=== PATIENT | female | born 1950 | race Caucasian/White ===

== ENCOUNTER → 2016-06-28 | Outpatient (CLI) | payer MEDICARE, OTHER ==
[~2016-06-28] MED LIST: ASPIR-LOW81 MG PO; ASPIRIN 81M81 MG/TA2 PO; CALCIUM 600600 M2 PO; CLARITIN 1010 MG/TAB PO; HCTZ 25MG25 MG PO; LIPITOR 40MG TA40 MG PO; LISINOPRIL20 MG PO; LOPRESSOR 225 MG/TAB PO; MICARDIS40 MG PO; NATURE'S BL400 IU/ML PO; NEXIUM 40MG40 MG PO; NEXIUM40 MG PO; NITRO-DUR0.4 MG/PAT TD; OMEGA 31000 MG PO; SYNTHROID0.088 MG/T PO; TENORMIN 2525 MG/TAB PO; ZYRTEC 10MG
== END ==
LOC: COL.VAS 12:22
DX: N27.1 Small kidney, bilateral (principal); N28.89 Other specified disorders of kidney and ureter; I82.812 Embolism and thrombosis of superficial veins of left lower extremity; I82.402 Acute embolism and thrombosis of unspecified deep veins of left lower extremity

== ENCOUNTER → 2017-06-25 | Outpatient (CLI) | payer MEDICARE, OTHER | LOC: COL.VAS 09:38 | DX: Z86.718 Personal history of other venous thrombosis and embolism (principal) ==

== ENCOUNTER 2017-07-23 07:28 | Day surgery (SDC) | payer MEDICARE, OTHER ==
[2017-07-23] VITALS (12 sets, daily range): BP systolic 110–131; BP diastolic 44–71; PULSE 62–78; TEMP 96.8–97.8
[~2017-07-23] VITALS: Ht 156.2 cm; Wt 73.0 kg
[~2017-07-23 07:28] MED LIST changes: +EPA FISH OIL1 SGL PO; -OMEGA 31000 MG PO
[2017-07-23 08:05] LABS: HEMATOCRIT 38.7 % (37.0-47.0); HEMOGLOBIN 13.1 g/dl (12.5-16.0); MEAN CELL VOLUME 94 fl (80.0-100.0); MEAN CORPUSCULAR HEMOGLOBIN 32 pg (27.0-31.0); MEAN CORPUSCULAR HGB CONC 34 g/dl (33.0-37.0); PLATELET COUNT 202 K/mm3 (130-400); REDCELL DISTRIBUTION WIDTH-CV 14.2 % (11.5-14.5)
[2017-07-23 08:12] LABS: INR 0.9 (0.8-3.0); PROTHROMBIN TIME 10.4 SECONDS (9.7-12.8)
[2017-07-23] MEDS ORDERED: RT ADVAIR HFA 1112 G IH (08:13)
[2017-07-23 08:14] LABS: CALCIUM 9.9 mg/dL (8.4-10.2); CREATININE, serum 1.26 mg/dL (0.52-1.25)
[2017-07-23] MEDS ORDERED: PROTONIX 40MG T40 MG PO (08:15)
[2017-07-23] MEDS ORDERED: CALCITRATE 3151 TAB PO (08:18)
[2017-07-23] MEDS ORDERED: THERATEARS 0.60.6 ML OP (08:20)
[2017-07-23] MEDS ORDERED: RESTASIS 60VL OU (08:22)
[2017-07-23] MEDS ORDERED: AKWA TEARS 15 M15 ML OP (08:23)
[2017-07-23] MEDS ORDERED: ELIQUIS 5MG PO (08:24)
[2017-07-23] MEDS ORDERED: VITAMIN D31000 I1 PO (08:25)
[2017-07-23] MEDS ORDERED: NATURAL IRON65 MG PO (08:26)
== END 2017-07-23 15:08 | disposition home or self-care (01) ==
LOC: COL.CAR 07:28
PROVIDERS: Internal Medicine Cardiovascular Disease
DX: R94.39 Abnormal result of other cardiovascular function study (principal); I10 Essential (primary) hypertension; I08.1 Rheumatic disorders of both mitral and tricuspid valves; K21.9 Gastro-esophageal reflux disease without esophagitis; E78.00 Pure hypercholesterolemia, unspecified; Z96.651 Presence of right artificial knee joint; Z79.82 Long term (current) use of aspirin; Z79.01 Long term (current) use of anticoagulants; Z86.718 Personal history of other venous thrombosis and embolism; Z82.3 Family history of stroke
CPT/HCPCS: J2250; J3010; Q9967

== ENCOUNTER → 2017-11-24 | Outpatient (CLI) | payer MEDICARE, OTHER ==
[~2017-11-24] MED LIST changes: +AKWA TEARS 15 M15 ML OP; +CALCITRATE 3151 TAB PO; +ELIQUIS 5MG PO; +NATURAL IRON65 MG PO; +PROTONIX 40MG T40 MG PO; +RESTASIS 60VL OU; +RT ADVAIR HFA 1112 G IH; +THERATEARS 0.60.6 ML OP; +VITAMIN D31000 I1 PO
== END ==
LOC: ZCOL.LAB 15:57
DX: M25.561 Pain in right knee (principal)

== ENCOUNTER → 2017-12-01 | Outpatient (REF) ==
[~2017-12-01] MED LIST changes: +BAKING SODA
== END ==
LOC: ZMSC 15:26
DX: Z01.89 Encounter for other specified special examinations (principal)

== ENCOUNTER → 2017-12-05 | Outpatient (CLI) | payer MEDICARE, OTHER | LOC: MC.RAD 13:11 | DX: Z12.31 Encounter for screening mammogram for malignant neoplasm of breast (principal) ==

== ENCOUNTER → 2018-02-26 | Outpatient (CLI) | payer MEDICARE, OTHER ==
[~2018-02-26] MED LIST changes: +SYNTHROID0.1 MG/TAB PO
== END ==
LOC: COL.LAB 14:40
DX: Z96.651 Presence of right artificial knee joint (principal)

== ENCOUNTER → 2018-02-27 | Outpatient (REF) ==
[2018-02-27 06:43] LABS: INR 1.4 (0.8-3.0); PROTHROMBIN TIME 15.9 SECONDS (9.7-12.8)
[2018-02-27 06:48] LABS: CALCIUM 9.6 mg/dL (8.4-10.2); CREATININE, serum 1.25 mg/dL (0.52-1.25); POTASSIUM 3.3 mmol/L (3.4-5.0)
== END ==
LOC: ZMSC 06:32
PROVIDERS: Orthopaedic Surgery
DX: Z01.89 Encounter for other specified special examinations (principal)

== ENCOUNTER → 2018-02-28 | Outpatient (CLI) | payer MEDICARE, OTHER | LOC: ZCOL.LAB 18:45 | DX: Z01.89 Encounter for other specified special examinations (principal) ==

== ENCOUNTER → 2018-02-28 | Outpatient (REF) | LOC: ZMSC 10:17 | DX: Z01.89 Encounter for other specified special examinations (principal) | CPT/HCPCS: P9016 ==

== ENCOUNTER → 2018-03-01 | Outpatient (REF) | LOC: ZMSC 04:10 | DX: Z01.89 Encounter for other specified special examinations (principal) ==

== ENCOUNTER 2018-04-14 08:00 | Outpatient (RCR) | payer MEDICARE, OTHER ==
[2018-03-02 13:05] VITALS: BP 123/61; PULSE 78; TEMP 97.2
[2018-03-03 08:16] VITALS: BP 128/59; PULSE 81; TEMP 98.3
[2018-03-04 07:44] VITALS: BP 118/52; PULSE 80; TEMP 98.6
[2018-03-05 08:00] VITALS: BP 112/54; PULSE 75; TEMP 97.9
[2018-03-06 08:04] VITALS: BP 119/52; PULSE 81; TEMP 97.9
[2018-03-07 08:02] VITALS: BP 123/54; PULSE 79; TEMP 98.4
[2018-03-08 08:30] VITALS: BP 115/49; PULSE 78; TEMP 98.4
[2018-03-09 08:10] VITALS: BP 123/52; PULSE 73; TEMP 97.9
[2018-03-09 08:13] LABS: HEMOGLOBIN 10.8 g/dl (12.5-16.0); MEAN CELL VOLUME 88 fl (80.0-100.0); MEAN CORPUSCULAR HEMOGLOBIN 30 pg (27.0-31.0); MEAN CORPUSCULAR HGB CONC 34 g/dl (33.0-37.0); MEAN PLATELET VOLUME 9.5 fl (7.4-10.4); PLATELET COUNT 214 K/mm3 (130-400); REDCELL DISTRIBUTION WIDTH-CV 13.3 % (11.5-14.5)
[2018-03-09 08:15] LABS: HEMATOCRIT 31.8 % (37.0-47.0)
[2018-03-09 08:27] LABS: C-REACTIVE PROTEIN 4.9 mg/dL (0.0-0.9); CALCIUM 8.8 mg/dL (8.4-10.2); CREATININE, serum 0.99 mg/dL (0.52-1.25); POTASSIUM 3.3 mmol/L (3.4-5.0)
[2018-03-09 08:52] LABS: ERYTHROCYTE SEDIMENTATION RATE 48 mm/hr (0-30)
[2018-03-10 09:21] VITALS: BP 118/59; PULSE 68; TEMP 97.8
[2018-03-11 08:04] VITALS: BP 116/56; PULSE 69; TEMP 97.7
[2018-03-12 08:21] VITALS: BP 122/55; PULSE 78; TEMP 97.4
[2018-03-13 08:00] VITALS: BP 127/54; PULSE 78; TEMP 97.6
[2018-03-14 08:12] VITALS: BP 131/58; PULSE 73; TEMP 97.4
[2018-03-15 08:19] VITALS: BP 123/62; PULSE 70; TEMP 98.5
[2018-03-16 08:15] VITALS: BP 133/50; PULSE 79; TEMP 98.1
[2018-03-16 08:15] LABS: MEAN CELL VOLUME 88 fl (80.0-100.0); MEAN CORPUSCULAR HEMOGLOBIN 30 pg (27.0-31.0); MEAN CORPUSCULAR HGB CONC 34 g/dl (33.0-37.0); MEAN PLATELET VOLUME 9.1 fl (7.4-10.4); PLATELET COUNT 197 K/mm3 (130-400); RED BLOOD COUNT 3.68 M/mm3 (4.10-5.30); REDCELL DISTRIBUTION WIDTH-CV 14.4 % (11.5-14.5)
[2018-03-16 08:28] LABS: C-REACTIVE PROTEIN 3.3 mg/dL (0.0-0.9); CALCIUM 9.4 mg/dL (8.4-10.2); CREATININE, serum 0.98 mg/dL (0.52-1.25); HEMATOCRIT 32.5 % (37.0-47.0); POTASSIUM 3.3 mmol/L (3.4-5.0)
[2018-03-16 08:49] LABS: ERYTHROCYTE SEDIMENTATION RATE 28 mm/hr (0-30)
[2018-03-17 08:00] VITALS: BP 136/66; PULSE 72; TEMP 97.8
[2018-03-18 08:03] VITALS: BP 127/81; PULSE 69; TEMP 97.9
[2018-03-19 08:04] VITALS: BP 129/56; PULSE 73; TEMP 97.2
[2018-03-20 08:00] VITALS: BP 150/59; PULSE 76; TEMP 97.6
[2018-03-21 08:00] VITALS: BP 138/63; PULSE 77; TEMP 98.6
[2018-03-22 08:00] VITALS: BP 124/61; PULSE 74; TEMP 98.1
[2018-03-23 08:06] VITALS: BP 138/69; PULSE 79; TEMP 97.7
[2018-03-23 08:15] LABS: MEAN CELL VOLUME 90 fl (80.0-100.0); MEAN CORPUSCULAR HEMOGLOBIN 30 pg (27.0-31.0); MEAN CORPUSCULAR HGB CONC 33 g/dl (33.0-37.0); MEAN PLATELET VOLUME 9.7 fl (7.4-10.4); PLATELET COUNT 218 K/mm3 (130-400); REDCELL DISTRIBUTION WIDTH-CV 14.9 % (11.5-14.5)
[2018-03-23 08:20] LABS: HEMATOCRIT 33.2 % (37.0-47.0)
[2018-03-23 08:33] LABS: C-REACTIVE PROTEIN 1.8 mg/dL (0.0-0.9); CALCIUM 9.2 mg/dL (8.4-10.2); CREATININE, serum 0.86 mg/dL (0.52-1.25); POTASSIUM 3.3 mmol/L (3.4-5.0)
[2018-03-23 08:49] LABS: ERYTHROCYTE SEDIMENTATION RATE 20 mm/hr (0-30)
[2018-03-24 08:06] VITALS: BP 141/63; PULSE 76; TEMP 97.1
[2018-03-25 07:55] VITALS: BP 127/58; PULSE 76; TEMP 98.6
[2018-03-26 09:02] VITALS: BP 139/59; PULSE 79; TEMP 97.3
[2018-03-27 08:08] VITALS: BP 133/59; PULSE 84; TEMP 97.7
[2018-03-28 08:06] VITALS: BP 145/61; PULSE 70; TEMP 96.7
[2018-03-29 08:32] VITALS: BP 141/72; PULSE 74; TEMP 97.5
[2018-03-30 08:18] LABS: HEMOGLOBIN 11.6 g/dl (12.5-16.0); MEAN CELL VOLUME 90 fl (80.0-100.0); MEAN CORPUSCULAR HEMOGLOBIN 30 pg (27.0-31.0); MEAN CORPUSCULAR HGB CONC 33 g/dl (33.0-37.0); MEAN PLATELET VOLUME 9.7 fl (7.4-10.4); PLATELET COUNT 173 K/mm3 (130-400); REDCELL DISTRIBUTION WIDTH-CV 15.1 % (11.5-14.5)
[2018-03-30 08:19] VITALS: BP 134/55; PULSE 73; TEMP 97.6
[2018-03-30 08:35] LABS: C-REACTIVE PROTEIN 1.2 mg/dL (0.0-0.9); CALCIUM 9.4 mg/dL (8.4-10.2); CREATININE, serum 0.88 mg/dL (0.52-1.25); POTASSIUM 3.6 mmol/L (3.4-5.0)
[2018-03-30 08:47] LABS: ERYTHROCYTE SEDIMENTATION RATE 16 mm/hr (0-30)
[2018-03-31 08:05] VITALS: BP 137/63; PULSE 76; TEMP 97.4
[2018-04-01 08:00] VITALS: BP 133/66; PULSE 76; TEMP 97.2
[2018-04-02 09:43] VITALS: BP 134/59; PULSE 76; TEMP 97.5
[2018-04-03 08:08] VITALS: BP 136/55; PULSE 67; TEMP 97.9
[2018-04-04 08:40] VITALS: BP 117/57; PULSE 78; TEMP 97.7
[2018-04-05 08:02] VITALS: BP 140/60; PULSE 69; TEMP 97.6
[2018-04-06 08:03] VITALS: BP 142/69; PULSE 77; TEMP 97.4
[2018-04-06 08:53] LABS: HEMOGLOBIN 10.7 g/dl (12.5-16.0); MEAN CELL VOLUME 91 fl (80.0-100.0); MEAN CORPUSCULAR HEMOGLOBIN 30 pg (27.0-31.0); MEAN CORPUSCULAR HGB CONC 33 g/dl (33.0-37.0); PLATELET COUNT 165 K/mm3 (130-400); RED BLOOD COUNT 3.57 M/mm3 (4.10-5.30); REDCELL DISTRIBUTION WIDTH-CV 15.2 % (11.5-14.5)
[2018-04-06 08:55] LABS: HEMATOCRIT 32.6 % (37.0-47.0)
[2018-04-06 09:08] LABS: C-REACTIVE PROTEIN 0.9 mg/dL (0.0-0.9); CALCIUM 9.3 mg/dL (8.4-10.2); CREATININE, serum 0.94 mg/dL (0.52-1.25); POTASSIUM 3.8 mmol/L (3.4-5.0)
[2018-04-06 09:25] LABS: ERYTHROCYTE SEDIMENTATION RATE 11 mm/hr (0-30)
[2018-04-07 08:34] VITALS: BP 114/58; PULSE 72; TEMP 97.1
[2018-04-08 08:00] VITALS: BP 120/71; PULSE 76; TEMP 97.5
[2018-04-09 08:24] VITALS: BP 125/63; PULSE 83; TEMP 97.8
[2018-04-10 08:30] VITALS: BP 114/64; PULSE 63; TEMP 97.5
[2018-04-11 07:45] VITALS: BP 148/67; PULSE 72; TEMP 97.5
[2018-04-12 08:09] VITALS: BP 131/54; PULSE 79; TEMP 97.2
[2018-04-13 08:18] VITALS: BP 125/58; PULSE 103; TEMP 98.1
[2018-04-13 08:30] LABS: HEMOGLOBIN 11.6 g/dl (12.5-16.0); MEAN CELL VOLUME 91 fl (80.0-100.0); MEAN CORPUSCULAR HEMOGLOBIN 30 pg (27.0-31.0); MEAN CORPUSCULAR HGB CONC 33 g/dl (33.0-37.0); MEAN PLATELET VOLUME 9.8 fl (7.4-10.4); PLATELET COUNT 158 K/mm3 (130-400); RED BLOOD COUNT 3.89 M/mm3 (4.10-5.30); REDCELL DISTRIBUTION WIDTH-CV 15.1 % (11.5-14.5)
[2018-04-13 08:31] LABS: HEMATOCRIT 35.2 % (37.0-47.0)
[2018-04-13 08:39] LABS: CALCIUM 9.3 mg/dL (8.4-10.2); CREATININE, serum 0.85 mg/dL (0.52-1.25); POTASSIUM 3.9 mmol/L (3.4-5.0)
[2018-04-13 08:53] LABS: ERYTHROCYTE SEDIMENTATION RATE 6 mm/hr (0-30)
[~2018-04-14] VITALS: Ht 157.5 cm; Wt 58.4 kg
[~2018-04-14 08:00] MED LIST changes: +ROXICODONE 55 MG/TAB PO
[2018-04-14 08:06] VITALS: BP 130/51; PULSE 68; TEMP 97.9
== END 2018-04-14 09:19 | disposition home or self-care (01) ==
LOC: EUO 08:00
PROVIDERS: Orthopaedic Surgery
DX: T84.53XA Infection and inflammatory reaction due to internal right knee prosthesis, initial encounter (principal); A48.8 Other specified bacterial diseases; Z96.651 Presence of right artificial knee joint; Z45.2 Encounter for adjustment and management of vascular access device; Z95.9 Presence of cardiac and vascular implant and graft, unspecified
CPT/HCPCS: C1751; J0696

== ENCOUNTER → 2018-07-08 | Outpatient (CLI) | payer MEDICARE, OTHER | LOC: COL.LAB 09:20 | DX: Z96.651 Presence of right artificial knee joint (principal) ==

== ENCOUNTER 2018-12-01 21:43 | Emergency (ER) | payer MEDICARE, OTHER ==
[~2018-12-01] VITALS: Ht 154.9 cm; Wt 59.1 kg
[2018-12-01 21:45] VITALS: TEMP 98
[2018-12-01 22:03] LABS: BASO % 0.2 % (0.0-2.0); EOS # 0.4 (0.0-0.7); EOS % 6.9 % (0-4.0); GRAN # 4.1 (1.4-6.5); GRAN % 70.4 % (42.2-75.2); HEMOGLOBIN 12.3 g/dl (12.5-16.0); LYMPH # 0.7 (1.2-3.4); LYMPH % 12.5 % (20.0-51.0); MEAN CELL VOLUME 89 fl (80.0-100.0); MEAN CORPUSCULAR HEMOGLOBIN 31 pg (27.0-31.0); MEAN CORPUSCULAR HGB CONC 35 g/dl (33.0-37.0); MEAN PLATELET VOLUME 8.5 fl (7.4-10.4); MONO # 0.6 (0.1-0.6); MONO % 9.5 % (1.7-9.3); PLATELET COUNT 209 K/mm3 (130-400); RED BLOOD COUNT 3.97 M/mm3 (4.10-5.30); REDCELL DISTRIBUTION WIDTH-CV 12.8 % (11.5-14.5)
[2018-12-01 22:05] LABS: HEMATOCRIT 35.4 % (37.0-47.0)
[2018-12-01 22:16] LABS: ALANINE AMINOTRANSFERASE 29 U/L (9-52); ALKALINE PHOSPHATASE 145 U/L (50-136); ANION GAP 10 mmol/L (7-16); AST,SGOT 44 U/L (15-37); BILIRUBIN,TOTAL 0.4 mg/dL (0.0-1.0); BLOOD UREA NITROGEN 28 mg/dL (7-17); C-REACTIVE PROTEIN < 0.5 mg/dL (0.0-0.9); CARBON DIOXIDE 25 mmol/L (22-30); CHLORIDE 93 mmol/L (98-107); CREATININE, serum 1.47 (0.52-1.25); GLUCOSE 108 mg/dL (74-106); LIPASE 55 U/L (23-300); SODIUM 128 mmol/L (137-145); TOTAL PROTEIN 7.1 gm/dL (6.4-8.2)
[2018-12-01 22:26] LABS: TROPONIN-I < 0.012 ng/mL (0.000-0.035)
[2018-12-01 23:31] LABS: COLLECTION METHOD CLEAN CATCH
[2018-12-01 23:37] LABS: PH 7 (5-8); SQUAMOUS EPITHELIAL 0-2 /hpf; URINE APPEARANCE Clear; URINE BACTERIA Rare /hpf; URINE BILIRUBIN Negative (NEGATIVE); URINE BLOOD Negative (NEGATIVE); URINE COLOR Straw; URINE GLUCOSE Negative (NEGATIVE); URINE KETONE Negative (NEGATIVE); URINE LEUKOCYTE ESTERASE Trace (NEGATIVE); URINE NITRATE Negative (NEGATIVE); URINE PROTEIN(semi-quant) Negative (NEGATIVE); URINE RBC 0-2 /hpf; URINE UROBILINOGEN Negative (NEGATIVE)
[2018-12-02] MEDS ORDERED: ZITHROMAX Z PA250 MG PO (00:26)
[2018-12-02 01:19] VITALS: BP 133/63; PULSE 79
== END 2018-12-02 01:15 | disposition home or self-care (01) ==
LOC: COL.ER 21:43
PROVIDERS: Emergency Medicine
DX: D64.9 Anemia, unspecified (principal); I70.1 Atherosclerosis of renal artery; K80.20 Calculus of gallbladder without cholecystitis without obstruction; R07.89 Other chest pain; I10 Essential (primary) hypertension; E78.5 Hyperlipidemia, unspecified; Z86.718 Personal history of other venous thrombosis and embolism; Z79.01 Long term (current) use of anticoagulants; Z79.82 Long term (current) use of aspirin; Z79.51 Long term (current) use of inhaled steroids
CPT/HCPCS: A4216; J0696; J2405; J3010; J7030; Q9967

== ENCOUNTER → 2018-12-14 | Outpatient (CLI) | payer MEDICARE, OTHER ==
[~2018-12-14] MED LIST changes: +ZITHROMAX Z PA250 MG PO
== END ==
LOC: MC.RAD 13:23
DX: Z12.31 Encounter for screening mammogram for malignant neoplasm of breast (principal)

== ENCOUNTER → 2019-12-16 | Outpatient (CLI) | payer MEDICARE, OTHER | LOC: MC.RAD 12:51 | DX: Z12.31 Encounter for screening mammogram for malignant neoplasm of breast (principal) ==

== ENCOUNTER → 2021-02-02 | Outpatient (CLI) | payer MEDICARE, OTHER | LOC: MC.RAD 10:26 | DX: Z12.31 Encounter for screening mammogram for malignant neoplasm of breast (principal); Z78.0 Asymptomatic menopausal state ==

== ENCOUNTER → 2021-10-04 | Outpatient (CLI) | payer MEDICARE, OTHER | LOC: COL.RAD 07:29 | DX: R13.19 Other dysphagia (principal) ==

== ENCOUNTER → 2022-02-04 | Outpatient (CLI) | payer MEDICARE, OTHER | LOC: MC.RAD 12:46 | DX: Z12.31 Encounter for screening mammogram for malignant neoplasm of breast (principal) ==

== ENCOUNTER → 2023-04-15 | Outpatient (CLI) | payer MEDICARE, OTHER | LOC: CANSCHCLI → MC.RAD 16:39 | DX: Z12.31 Encounter for screening mammogram for malignant neoplasm of breast (principal) ==

== ENCOUNTER → 2024-04-16 | Outpatient (CLI) | payer MEDICARE, OTHER | LOC: MC.RAD 08:53 | DX: Z12.31 Encounter for screening mammogram for malignant neoplasm of breast (principal) ==